=== PATIENT | female | born 1950 | race Caucasian/White ===

== ENCOUNTER 2017-12-11 20:25 | Emergency (ER) | payer MEDICARE ==
[2017-12-11 20:55] LABS: Appearance,Urine Clear (Clear); Bacteria,Urine Moderate /hpf; Bilirubin,Urine Negative (Negative); Blood,Urine Negative (Negative); Color,Urine Colorless; Glucose,Urine (UA) Negative (Negative); Ketones,Urine Negative (Negative); Leukocyte Esterase,Urine Moderate (Negative); Mucus,Urine Rare /hpf; Nitrite,Urine Negative (Negative); Protein,Urine Negative (Negative); RBC,Urine <1 /hpf (0-5); Specific Gravity,Urine 1.002 (1.001-1.035); Squamous Epithelial Cell,Urine <1 /hpf (0-4); Urobilinogen,Urine <2.0 mg/dL (<2.0); WBC,Urine 5 /hpf (0-5)
--- NOTE | 2017-12-11 21:22 | ED ---
General Adult HPI - General Chief complaint: Urogenital Stated complaint: poss bladder infection Time Seen by Provider: 12/11/17 21:13 Source: family Mode of arrival: ambulatory Limitations: altered mental status - History of Present Illness Initial comments: Patient is a 67-year-old female with a history of recurrent urinary tract infections for which she follows with the [facility] in [facility]. Patient currently lives in an adult foster home, her daughter's report that they did a random urine sample on her and were told that she may have an early urinary tract infection. She had no symptoms or complaints precipitating them doing this urinary test. Due to her history of recurrent urinary tract infections and resistant urinary tract infections daughter's decided to bring her to the ER for evaluation. They report that due to schedule conflicts in the long commute they were unable to get her a follow- up appointment at her urologist today. Daughter's report that they have been told by the foster care that her mother's been eating and drinking well, they've been pushing fluids to make sure that she is well-hydrated. Mother has been otherwise at her baseline. Patient is pleasantly demented and offers no complaints. On initial exam and asked her if she had any complaints she smiled happily and said she she is so happy somebody wants to take care of her. - Related Data Home Medications Medication Instructions Recorded Confirmed Levothyroxine Sodium [Levoxyl] 1 tab PO DAILY 12/11/17 12/11/17 Memantine [Namenda] 1 tab PO BID 12/11/17 12/11/17 Metoprolol Succinate (ER) [Toprol 1 tab PO DAILY 12/11/17 12/11/17 XL] QUEtiapine [SEROquel] 1 tab PO DAILY 12/11/17 12/11/17 Sertraline [Zoloft] 1 tab PO DAILY 12/11/17 12/11/17 busPIRone HCl [Buspar] 1 tab PO BID 12/11/17 12/11/17 clonazePAM [KlonoPIN] 1 tab PO BID 12/11/17 12/11/17 Allergies Allergy/AdvReac Type Severity Reaction Status Date / Time No Known Allergies Allergy Verified 12/11/17 20:36 Review of Systems ROS Statement: Those systems with pertinent positive or pertinent negative responses have been documented in the HPI. Review of systems is limited due to the patient's advanced dementia, daughters provide review of systems to the best of their ability. ROS Other: All systems not noted in ROS Statement are negative. Past Medical History Past Medical History: Dementia, Hypertension, Thyroid Disorder History of Any Multi-Drug Resistant Organisms: None Reported Past Surgical History: No Surgical Hx Reported Past Psychological History: Anxiety, Depression Smoking Status: Never smoker Past Alcohol Use History: None Reported Past Drug Use History: None Reported General Exam Limitations: altered mental status (Advanced dementia) General appearance: alert, in no apparent distress, other (Patient walking around the hospital room, she is wearing a gown, she has multiple T-shirts on over her gown, she was seen 2 repeatedly take her T-shirts off and put them back on and readjust her gown. Daughters report that this is her baseline mental status.) Head exam: Present: atraumatic, normocephalic Eye exam: Present: PERRL ENT exam: Present: mucous membranes moist Neck exam: Present: full ROM Respiratory exam: Absent: respiratory distress Cardiovascular Exam: Present: regular rate, normal rhythm GI/Abdominal exam: Present: soft, normal bowel sounds. Absent: distended, tenderness, guarding, rebound, rigid Rectal exam: Present: deferred Extremities exam: Present: full ROM Neurological exam: Present: alert, abnormal gait (Patient has a shuffling gait which is unchanged from her previous), other (Patient is oriented to self only) Psychiatric exam: Present: flat affect Skin exam: Present: warm, dry Course Vital Signs 12/11/17 20:36 Temperature 98.3 F Pulse Rate 62 Respiratory 16 Rate Blood Pressure 129/75 O2 Sat by Pulse 96 Oximetry Medical Decision Making - Medical Decision Making The patient was seen and evaluated, history is obtained from the daughters Patient no acute distress, walking around the hospital room comfortably Urinalysis does reveal moderate leukocyte esterase, moderate bacteria, no squamous epithelium she does have a history of recurrent antibiotic resistant urinary tract infections. Daughters report that she has been on Keflex Cipro Bactrim in the past, she required admission for IV medications for her urinary tract infections in the past. This time the patient has no Sirs criteria, is in no discomfort and urinalysis is consistent with a very early urinary tract infection. Urine culture was ordered. Daughters report that the patient has never been treated with by mouth Fosfomycin And they would be willing to try this. In addition the patient has previously followed with urology in [place] where she previously lived, I will refer them to a local urologist for more convenient follow-up if they would like to pursue that. All questions pertaining to care were answered best my ability the patient was discharged in her daughter's care in stable condition. A handwritten prescription for oral fosfomycin was provided the plan to fill this and give the prescription tomorrow. - Lab Data Lab Results 12/11/17 Range/Units 20:44 Urine Color Colorless Urine Appearance Clear (Clear) Urine pH 7.0 (5.0-8.0) Ur Specific [place] 1.002 (1.001-1.035) Urine Protein Negative (Negative) Urine Glucose (UA) Negative (Negative) Urine Ketones Negative (Negative) Urine Blood Negative (Negative) Urine Nitrite Negative (Negative) Urine Bilirubin Negative (Negative) Urine Urobilinogen <2.0 (<2.0) mg/dL Ur Leukocyte Esterase Moderate H (Negative) Urine RBC <1 (0-5) /hpf Urine WBC 5 (0-5) /hpf Ur Squamous Epith Cells <1 (0-4) /hpf Urine Bacteria Moderate H (None) /hpf Urine Mucus Rare H (None) /hpf Disposition Clinical Impression: Urinary tract infection Disposition: HOME SELF-CARE Condition: Stable Instructions: Urinary Tract Infection in Women (ED) Additional Instructions: Prescription for fosfomycin 3 g by mouth 1 was provided Is patient prescribed a controlled substance at d/c from ED?: No Referrals: Froy De La Rosa MD [Primary Care Provider] - 1-2 days Gurinder Mishra MD [STAFF PHYSICIAN] - 1-2 days Time of Disposition: 21:28
[2017-12-11 22:28] VITALS: BP 126/78; PULSE 66; RESP 18; TEMP 98.6
== END 2017-12-11 21:58 | disposition home or self-care (01) ==
LOC: EC 20:25
DX: N39.0 Urinary tract infection, site not specified (principal); F03.90 Unspecified dementia, unspecified severity, without behavioral disturbance, psychotic disturbance, mood disturbance, and anxiety; I10 Essential (primary) hypertension; E07.9 Disorder of thyroid, unspecified; F32.9 Major depressive disorder, single episode, unspecified; F41.9 Anxiety disorder, unspecified; Z79.899 Other long term (current) drug therapy
CPT/HCPCS: 81001; 87086; 99283